=== PATIENT | female | born 1950 | race Caucasian/White ===

== ENCOUNTER 2020-10-12 10:31 | Inpatient (IN) | payer OTHER ==
[~2020-10-12] VITALS: Ht 162.6 cm; Wt 82.1 kg
--- NOTE | ~2020-10-12 | PROC ---
[address] [address] PROCEDURE REPORT Name: JOSS GALDAMEZ Room: [address] IN .R.#: [id number] Admission: 10/12/20 Attend Phys: Ivory Healy Discharge: 10/15/20 Date of : 50 Report #: [id number] THIS REPORT FOR: cc: FAM - No family physician/PCP FAM - No family physician/PCP [facility],Medical Records Staff ~ For GI report, please see the Provation report in Perceptive 7 content. By: 1010Medical Records Staff [facility] /ELYSSA
--- NOTE | ~2020-10-12 | PROC ---
[address] [address] PROCEDURE REPORT Name: JOSS GALDAMEZ Room: [address] IN .R.#: [id number] Admission: 10/12/20 Attend Phys: Ivory Healy Discharge: 10/15/20 Date of : 50 Report #: [id number] THIS REPORT FOR: cc: FAM - No family physician/PCP FAM - No family physician/PCP [facility],Medical Records Staff ~ For GI report, please see the Provation report in Perceptive 7 content. By: 1009Medical Records Staff [facility] /ELYSSA
[2020-10-12 10:42] VITALS: BP 109/54
[2020-10-12] MEDS ORDERED: PRESERVISION A1 EAC2 PO (10:45)
[2020-10-12 11:06] LABS: ABSOLUTE BASOPHILS 0.1 thou/uL (0.0-0.2); ABSOLUTE LYMPHOCYTES 1.3 thou/uL (0.8-5.3); ABSOLUTE MONOCYTES 0.3 thou/uL (0.0-1.2); ABSOLUTE NEUTROPHILS 8.4 thou/uL (1.6-8.1); BASOPHILS 0.8 %; EOSINOPHILS 0.2 %; HEMATOCRIT 25.2 % (37.0-47.0); HEMOGLOBIN 7.9 gm/dL (12.0-15.0); LYMPHOCYTES 13.2 %; MCH 22.5 pg (26.0-34.0); MCHC 31.2 g/dL (28.0-37.0); MCV 72.1 fL (80.0-100.0); MONOCYTES 3.3 %; MPV 7.4 fl. (7.2-11.1); NUCLEATED RBCS 0 /100WBC; PLATELET COUNT* 488 thou/uL (150-400); POLYS 82.5 %; RDW-CV 16.8 % (10.5-14.5); WBC 10.2 thou/uL (4.0-11.0)
[2020-10-12 11:19] LABS: CALCIUM 8.6 mg/dL (8.5-10.1); POTASSIUM 4.2 mmol/L (3.5-5.1)
[2020-10-12 11:24] LABS: ALBUMIN 3.8 g/dL (3.4-5.0); TOTAL BILIRUBIN 0.3 mg/dL (<0.1-1.0); TOTAL PROTEIN 7.3 g/dL (6.4-8.2)
[2020-10-12 11:40] LABS: HYPOCHROMASIA 3+; PLATELET ESTIMATE INCREASED
[2020-10-12 11:41] LABS: MICROCYTES 1+
[2020-10-12 11:57] LABS: URINE BILIRUBIN NEGATIVE (Negative); URINE BLOOD NEGATIVE (Negative); URINE CLARITY CLEAR; URINE COLOR YELLOW; URINE GLUCOSE-RANDOM NEGATIVE (Negative); URINE KETONES NEGATIVE (Negative); URINE LEUKOCYTES-REFLEX TRACE (Negative); URINE NITRITE-REFLEX NEGATIVE (Negative); URINE PROTEIN NEGATIVE (Negative); URINE SPECIFIC GRAVITY 1.025 (1.005-1.030); URINE UROBILINOGEN 0.2 E.U./dl (0.2-1.0)
[2020-10-12 12:03] LABS: BACTERIA-REFLEX >30 Many /HPF (None Seen); CASTS None Seen /LPF (None Seen); CRYSTALS None Seen /LPF (None Seen); MUCUS 4-6 Moderate strn/LPF (None Seen); SQUAMOUS >10 Many /LPF (0-3); URINE RBC None Seen /HPF (0-2); URINE WBC-REFLEX 0-5 Rare /HPF (0-5)
[2020-10-12 14:27] LABS: % SATURATION 2 % (20-39); IRON 6 ug/dL (50-175)
[2020-10-12 15:08] VITALS: BP 149/75
[2020-10-12 15:45] VITALS: BP 138/71
--- NOTE | 2020-10-12 16:33 | EKG ---
[place] [address] ELECTROCARDIOGRAM REPORT Name: JOSS GALDAMEZ Room: [address] IN M.R.#: [id number] Admission: 10/12/20 Attend Phys: Son Siddiqui Discharge: Date of : 50 Date of Service: 10/12/20 1054 Report #: [id number] THIS REPORT FOR: //name// [facility] ED Test Date: 2020-10-12 Test Time: 10:54:02 Pat Name: JOSS GALDAMEZ Department: Room: [facility] Gender: F [employer] Teacher: MICHELLE : 1950 Requested By: Justin Norton Order Number: [id number] MD: Yariel Fontana Measurements Intervals [place] Rate: 65 P: 77 TN: 135 QRS: 46 QRSD: 99 T: 42 QT: 431 QTc: 449 Interpretive Statements Sinus rhythm No previous ECG available for comparison Electronically Signed On 10-12-2020 16:33:39 CDT by Yariel Fontana [email or web address] <ELECTRONICALLY SIGNED> By: Yariel Fontana MD, [facility] 10/12/20 1633 1054 1054 Yariel Fontana MD, [facility] /EPI
[2020-10-12 20:00] VITALS: BP 126/63
[2020-10-13 05:00] LABS: CALCIUM 8.3 mg/dL (8.5-10.1); POTASSIUM 4.1 mmol/L (3.5-5.1)
[2020-10-13 05:27] LABS: HEMATOCRIT 25.1 % (37.0-47.0); MCHC 27.7 g/dL (28.0-37.0); MPV 8.3 fl. (7.2-11.1); RBC 3.03 mil/uL (4.20-5.00); RDW-CV 17.2 % (10.5-14.5); WBC 7.4 thou/uL (4.0-11.0)
[2020-10-13 05:30] LABS: MCV 83.1 fL (80.0-100.0)
[2020-10-13 08:00] VITALS: BP 132/49
[2020-10-13 12:17] VITALS: BP 132/49
[2020-10-14 04:10] LABS: ABSOLUTE BASOPHILS 0.1 thou/uL (0.0-0.2); ABSOLUTE EOSINOPHILS 0.3 thou/uL (0.0-0.7); ABSOLUTE MONOCYTES 0.7 thou/uL (0.0-1.2); ABSOLUTE NEUTROPHILS 5.2 thou/uL (1.6-8.1); BASOPHILS 0.8 %; EOSINOPHILS 3.8 %; HEMATOCRIT 22.7 % (37.0-47.0); LYMPHOCYTES 24.6 %; MCH 22.2 pg (26.0-34.0); MCHC 30.6 g/dL (28.0-37.0); MONOCYTES 8.1 %; MPV 7.5 fl. (7.2-11.1); NUCLEATED RBCS 0 /100WBC; POLYS 62.7 %; RBC 3.13 mil/uL (4.20-5.00); RDW-CV 16.4 % (10.5-14.5); WBC 8.3 thou/uL (4.0-11.0)
[2020-10-14 04:23] LABS: CREATININE 0.9 mg/dL (0.6-1.3); POTASSIUM 3.5 mmol/L (3.5-5.1)
[2020-10-14 05:00] LABS: MCV 72.5 fL (80.0-100.0); PLATELET COUNT* 442 thou/uL (150-400)
[2020-10-14 05:49] LABS: ANISOCYTOSIS 1+; HYPOCHROMASIA 2+; MICROCYTES 1+; POIKILOCYTOSIS Occasional
[2020-10-14 08:15] VITALS: BP 139/71
[2020-10-14 16:00] VITALS: BP 119/58
[2020-10-14 20:30] VITALS: BP 112/59
[2020-10-15 03:57] LABS: ABSOLUTE BASOPHILS 0.1 thou/uL (0.0-0.2); ABSOLUTE EOSINOPHILS 0.2 thou/uL (0.0-0.7); ABSOLUTE LYMPHOCYTES 1.7 thou/uL (0.8-5.3); ABSOLUTE MONOCYTES 0.7 thou/uL (0.0-1.2); ABSOLUTE NEUTROPHILS 4.9 thou/uL (1.6-8.1); BASOPHILS 0.9 %; EOSINOPHILS 2.4 %; HEMATOCRIT 21.6 % (37.0-47.0); LYMPHOCYTES 22.3 %; MCH 22.2 pg (26.0-34.0); MCHC 30.6 g/dL (28.0-37.0); MCV 72.3 fL (80.0-100.0); MONOCYTES 9.1 %; MPV 7.9 fl. (7.2-11.1); NUCLEATED RBCS 0 /100WBC; PLATELET COUNT* 415 thou/uL (150-400); POLYS 65.3 %; RBC 2.99 mil/uL (4.20-5.00); RDW-CV 16.8 % (10.5-14.5); WBC 7.5 thou/uL (4.0-11.0)
[2020-10-15 04:14] LABS: CALCIUM 7.8 mg/dL (8.5-10.1); CREATININE 0.9 mg/dL (0.6-1.3); POTASSIUM 3.5 mmol/L (3.5-5.1)
[2020-10-15 06:02] LABS: HEMOGLOBIN 6.6 gm/dL (12.0-15.0)
[2020-10-15 06:32] LABS: ANISOCYTOSIS 1+; HYPOCHROMASIA 2+; MICROCYTES 1+; PLATELET ESTIMATE INCREASED
[2020-10-15 08:15] VITALS: BP 130/70
[2020-10-15] MEDS ORDERED: NEXIUM40 MG PO (09:46)
[2020-10-15] MEDS ORDERED: IRON325 PO (09:46)
[2020-10-15 10:59] VITALS: BP 114/59; BP 118/67; BP 120/68; BP 128/71
[2020-10-15 14:34] LABS: HEMATOCRIT 25.4 % (37.0-47.0); HEMOGLOBIN 7.9 gm/dL (12.0-15.0)
[2020-10-15 15:34] VITALS: BP 130/70
--- NOTE | 2020-10-17 18:06 | PATH ---
[address] [address] PATHOLOGY RPT PROCEDURE Name: JOSS GALDAMEZ Room: [address] IN M.R.#: [id number] Admission: 10/12/20 Date of : 50 Discharge: 10/15/20 Report #: [id number] Path Case #: [id number] [facility] Accession Number: [id number] . 01 Material submitted: . duodenum - DUODENAL BIOPSY . 01 Clinical history: . EGD IN OR PANCREATITIS R/O CELIAC SPRUE . 02 Diagnosis: Duodenal biopsy: - Normal duodenal mucosa. ([facility]:pit; 10/17/2020) QTP 10/17/2020 1434 Local . 02 Electronically signed: . Ki Wang MD, Pathologist NPI- [id number] . 01 Gross description: . Received in formalin labeled "Cohron, Joss, duodenal biopsy rule out celiac sprue" is a fragment of murphy-brown soft tissue measuring 0.4 x 0.3 x 0.1 cm. The specimen is submitted entirely in A1. ([facility]; 10/14/2020) [facility] 10/14/2020 1453 Local . 02 Pathologist provided ICD-10: K85.90 . 02 CPT . 674555 Specimen Comment: A courtesy copy of this report has been sent to [phone] Specimen Comment: [phone] Specimen Comment: Report sent to / DR CAIN Performed at: [address] [facility] [address], [place], [place] [id number] MD Seb Singh MD Phone: [phone] Performed at: [address] [facility] [address] [address], [place], [place] [id number] MD Ki Wang MD Phone: [phone]
--- NOTE | 2020-10-17 18:06 | PATH ---
[address] [address] PATHOLOGY RPT PROCEDURE Name: ANNAJEREMIAHJANNETTEA Cem Room: [address] IN ..#: [id number] Admission: 10/12/20 Date of : 50 Discharge: 10/15/20 Report #: [id number] Path Case #: [id number] [facility] Accession Number: [id number] . 01 Material submitted: . colon - TRANSVERSE COLON POLYP. Modifiers: transverse . 01 Clinical history: . DIVERTICULOSIS, TRANSVERSE COLON POLYP, HEMORROIRDS . 02 Diagnosis: Transverse colon polyp: - Tubular adenoma, negative for high grade dysplasia. ([facility]/db; 10/17/2020) LBQ 10/17/2020 1458 Local . 02 Electronically signed: . Ki Wang MD, Pathologist NPI- [id number] . 01 Gross description: . The specimen is received in formalin, labeled "Cohron, Joss, transverse colon polyp" received as one fragment of soft murphy tissue measuring up to 0.1 cm. Entirely submitted in A1. ([facility]; 10/16/2020) . JIL/JIL 10/16/2020 1637 Local . 02 Pathologist provided ICD-10: D12.3 . 02 CPT . 086351 Specimen Comment: A courtesy copy of this report has been sent to [phone] Specimen Comment: [phone] Specimen Comment: Report sent to / DR CAIN Performed at: 01 [facility] [place] [address] [place] [address] [address], [place], [place] [id number] MD Seb Singh MD Phone: [phone] Performed at: [address] [facility] [address] [address], [place], [place] [id number] MD Ki Wagn MD Phone: [phone]
== END 2020-10-15 16:05 | disposition home or self-care (01) | DRG 378 ==
LOC: M.ERS 10:31 → M.ORTHSURG 13:28 → M.TBA-ER 13:28 → M.ORTHSURG 15:37
PROVIDERS: Emergency Medicine Emergency Medical Services; Internal Medicine; ADMIT Internal Medicine; ATTEND Internal Medicine
DX: K57.31 Diverticulosis of large intestine without perforation or abscess with bleeding (principal); R71.0 Precipitous drop in hematocrit; K44.9 Diaphragmatic hernia without obstruction or gangrene; K21.00 Gastro-esophageal reflux disease with esophagitis, without bleeding; D12.3 Benign neoplasm of transverse colon; K64.8 Other hemorrhoids; K22.2 Esophageal obstruction; Z20.822 Contact with and (suspected) exposure to COVID-19; Z79.899 Other long term (current) drug therapy